=== PATIENT | female | born 1985 | race Caucasian/White ===

== ENCOUNTER 2017-02-11 22:13 | Emergency (ER) | payer OTHER ==
[~2017-02-11] VITALS: Ht 167.6 cm; Wt 90.9 kg
[~2017-02-11 22:13] MED LIST: FLEXERIL10 MG PO; MEDROL DOSEPAK4 MG PO; NAPROSYN500 MG PO; NASONEX17 GM BOTH NARES; ORTHO CYCLEN1 TABLET PO; PULMICORT FLE180 MCG IH
[2017-02-11 22:53] LABS: HEMATOCRIT 43.2 % (36.0-46.0); MCHC 32.9 G/DL (30.0-36.0); MCV 91.1 FL (83-99); PLATELET COUNT 298 K/uL (156-360); RBC DIS.WIDTH-CV 12.3 % (11.8-14.6); RED BLOOD COUNT 4.74 M/uL (3.80-5.20); WHITE BLOOD COUNT 13.1 K/uL (4.1-10.2)
[2017-02-11 23:06] LABS: CHLORIDE 107 mEq/L (99-109); POTASSIUM 3.8 mEq/L (3.7-5.4); SODIUM 138 mEq/L (136-147)
[2017-02-11 23:08] LABS: GLUCOSE 103 mg/dL (70-99)
[2017-02-11 23:09] LABS: ANION GAP 12 MEQ/L (2-14)
[2017-02-11 23:10] LABS: TOTAL BILIRUBIN 0.4 mg/dL (0.0-1.0)
[2017-02-11 23:11] LABS: ALKALINE PHOSPHATASE 54 IU/L (3-129)
[2017-02-11 23:12] LABS: GFR ESTIMATE (CALCULATED) > 59 mL/min/
[2017-02-11 23:13] LABS: UREA NITROGEN (BUN) 12 mg/dL (9-23)
[2017-02-11 23:21] LABS: QUANTITATIVE HCG < 4.0 MIU/ML
[2017-02-12 01:38] LABS: ADD MIUA? NO; BILIRUBIN NEGATIVE; BLOOD NEGATIVE; COLOR STRAW ((YELLOW)); GLUCOSE (STRIP) NEGATIVE; KETONES NEGATIVE; LEUKOCYTES NEGATIVE; NITRITE NEGATIVE; PROTEIN (STRIP) NEGATIVE; SPECIFIC GRAVITY 1.013 (1.000-1.030); UCUL ADDED? NO; UROBILINOGEN 0.2 MG/DL (0.2-1.0)
[2017-02-12] MEDS ORDERED: CIPRO500 MG PO (02:12)
[2017-02-12] MEDS ORDERED: FLAGYL500 MG PO (02:12)
[2017-02-12] MEDS ORDERED: PERCOCET 5/31 TABLET PO (02:13)
[2017-02-12] MEDS ORDERED: ZOFRAN ODT4 MG PO (02:13)
[2017-02-12 03:03] VITALS: BP 136/93
== END 2017-02-12 03:07 | disposition home or self-care (01) ==
LOC: EME 22:13
DX: K52.9 Noninfective gastroenteritis and colitis, unspecified (principal); Z88.5 Allergy status to narcotic agent
CPT/HCPCS: 74177; 80053; 81003; 84702; 85027; 99281; 99285; J2405; J3010; J7030